=== PATIENT | female | born 1960 | race Caucasian/White ===

== ENCOUNTER 2017-05-29 10:51 | Inpatient (IN) | payer OTHER ==
[2017-05-29 11:10] VITALS: BMI 25.4
--- NOTE | 2017-05-29 12:47 | HP ---
CIWA Score - CIWA Score Nausea/Vomitin Muscle Tremors: 3 Anxiety: 3 Agitation: 3 Paroxysmal Sweats: 2 Orientation: 0-Oriented Tacttile Disturbances: 2-Mild Itch/Numbness/Burn Auditory Disturbances: 2-Mild Harshness/Frighten Visual Disturbances: 2-Mild Sensitivity Headache: 2-Mild CIWA-Ar Total Score: 22 Admission ROS BHS - HPI Chief Complaint: I NEED HELP TO STOP USING XANAX AND COCAINE Allergies/Adverse Reactions: Allergies Allergy/AdvReac Type Severity Reaction Status Date / Time No Known Allergies Allergy Verified 05/29/17 12:38 History of Present Illness: THIS 56 YEARS OLD FEMALE WITH XANAX AND COCAINE DEPENDENCE,SEEKING DETOX, WITHDRAWAL SYMPTOM,LAST DETOX 2007 UNKNOWN FACILITY TYPE 2 DM,ASTHMA,SCHIZOPHRENIA NICOTINE DEPENDENCE ON METHADONE MAINTENANCE LAST MEDICATED TODAY NO SIGNIFICANT PERIOD OF SOBRIETY Exam Limitations: No Limitations - Ebola screening Have you traveled outside of the country in the last 21 days: No Have you been sick,other than usual withdrawal symptoms: No - Review of Systems Constitutional: Chills, Loss of Appetite, Malaise, Night Sweats, Changes in sleep, Weakness EENT: reports: Tearing, Nose Congestion Respiratory: reports: No Symptoms reported, Other (HISTORY OF ASTHMA) Cardiac: reports: No Symptoms Reported GI: reports: Diarrhea, Nausea, Vomiting, Abdominal cramping : reports: No Symptoms Reported Musculoskeletal: reports: Back Pain, Muscle Pain Integumentary: reports: Dryness Neuro: reports: Headache, Tremors Endocrine: reports: No Symptoms Reported Hematology: reports: No Symptoms Reported Psychiatric: reports: No Sypmtoms Reported, Judgement Intact, Mood/Affect Appropiate, Orientated x3 Other Systems: Reviewed and Negative Patient History - Patient Medical History Hx Anemia: No Hx Asthma: Yes (ON ALBUTEROL AND SYMBICORT INHALER) Hx Chronic Obstructive Pulmonary Disease (COPD): No Hx Cancer: No Hx Cardiac Disorders: No Hx Congestive Heart Failure: No Hx Hypertension: No Hx Hypercholesterolemia: No Hx Pacemaker: No HX Cerebrovascular Accident: No Hx Seizures: Yes (LAST 5 YEARS AGO) Hx Dementia: No Hx Diabetes: Yes (ON METFORMIN 1000 MGS PO BID,LANTUS INSULIN 20 UNITS HS) Hx Gastrointestinal Disorders: No Hx Liver Disease: No Hx Genitourinary Disorders: No Hx Sexually Transmitted Disorders: No Hx Renal Disease (ESRD): No Hx Thyroid Disease: Yes (NOT SURE ,NO MED) Hx Human Immunodeficiency Virus (HIV): No Hx Hepatitis C: No Hx Depression: No Hx Suicide Attempt: No Hx Bipolar Disorder: No Hx Schizophrenia: Yes Other Medical History: NO SUICIDAL,NO HOMICIDAL - Patient Surgical History Hx Appendectomy: Yes (AT AGE OF 12 YEARS) - PPD History Previous Implant?: Yes Documented Results: Positive w/o proof Implanted On Prior [facility] Admission?: No PPD to be Administered?: No - Reproductive History Patient is a Female of Child Bearing Age (11 -55 yrs old): Yes Patient : No - Smoking Cessation Smoking history: Current every day smoker Have you smoked in the past 12 months: Yes Aproximately how many cigarettes per day: 20 Cigars Per Day: 0 Hx Chewing Tobacco Use: No Initiated information on smoking cessation: Yes 'Breaking Loose' booklet given: 05/29/17 - Substance & Tx. History Hx Alcohol Use: No Hx Substance Use: Yes Substance Use Type: Cocaine, Tranquilizers Hx Substance Use Treatment: Yes ([address] [place] [address]) - Substances Abused Alprazolam (Xanax) Route: Oral Frequency: Daily Amount used: 8mg Age of first use: 26 Date of Last Use: 05/25/17 Cocaine Route: Inhalation Frequency: Daily Amount used: 1 bag Age of first use: 26 Date of Last Use: 05/28/17 Family Disease History - Family Disease History Family History: Denies Admission Physical Exam BHS - Vital Signs Vital Signs: Vital Signs - 24 hr 05/29/17 11:08 Temperature 98.8 F Pulse Rate 81 Respiratory 18 Rate Blood Pressure 106/70 - Physical General Appearance: Yes: Moderate Distress, Tremorous, Irritable, Sweating, Anxious HEENTM: Yes: Normal ENT Inspection, CJ, Pharynx Normal Respiratory: Yes: Within Normal Limits, Lungs Clear, Normal Breath Sounds, No Respiratory Distress Neck: Yes: Within Normal Limits, Supple, Trachea in good position Breast: Yes: Breast Exam Deferred Cardiology: Yes: Within Normal Limits, Regular Rhythm, Regular Rate, S1, S2 Abdominal: Yes: Within Normal Limits, Normal Bowel Sounds, Non Tender, Flat, Soft, Surgical Scar (S/P APPENDECTOMY) Genitourinary: Yes: Within Normal Limits Back: Yes: Normal Inspection, Muscle Spasm Musculoskeletal: Yes: full range of Motion, Back pain, Muscle Pain Extremities: Yes: Normal Range of Motion, Tremors Neurological: Yes: payroll bookkeeper II-XII NML intact, Fully Oriented, Alert, Motor Strength 5/5 Integumentary: Yes: Dry Lymphatic: Yes: Within Normal Limits - Diagnostic (1) Uncomplicated sedative, hypnotic or anxiolytic withdrawal Current Visit: Yes Status: Acute (2) Cocaine dependence Current Visit: Yes Status: Acute (3) Withdrawal seizures Current Visit: Yes Status: Acute (4) DM2 (diabetes mellitus, type 2) Current Visit: Yes Status: Acute (5) Methadone maintenance therapy patient Current Visit: Yes Status: Acute (6) Schizophrenia Current Visit: Yes Status: Chronic Comment: As per self-report.On medications.Followed at the [facility] OPD clinic in [facility]. (7) History of appendectomy Current Visit: Yes Status: Acute (8) Nicotine dependence Current Visit: Yes Status: Acute Cleared for Admission BHS - Detox or Rehab S Level of Care: Medically Managed Detox Regimen/Protocol: Valium S Breath Alcohol Content Breath Alcohol Content: 0 Urine Pregancy Test - Result Urine Test Results: Negative- NO Line Present Urine Drug Screen - Results Drug Screen Negative: No Urine Drug Screen Results: YE-Cocaine, BZO-Benzodiazepines, MTD-Methadone
[2017-05-29] MEDS ORDERED: MAG HYDROX/AL HYDROX/SIMETH 30 ML UNIT-DOSE CUP PO PRN (13:03)
[2017-05-29] MEDS ORDERED: guaiFENesin/D-METHORPHAN HB 10 ML UNIT-DOSE CUPS PO PRN (13:03)
[2017-05-29] MEDS ORDERED: hydrOXYzine PAMOATE 50 MG CAPSULE (FP) PO PRN (13:03)
[2017-05-29] MEDS ORDERED: IBUPROFEN 400 MG TABLET (FP) PO PRN (13:03)
[2017-05-29] MEDS ORDERED: NICOTINE POLACRILEX 2 MG GUM BUC PRN (13:03)
[2017-05-29] MEDS ORDERED: MAGNESIUM CITRATE 300 ML BOTTLE PO PRN (13:03)
[2017-05-29] MEDS ORDERED: ACETAMINOPHEN 325 MG TABLET (FP) PO PRN (13:03)
[2017-05-29] MEDS ORDERED: P-EPHED 60MG/TRIPROLIDI 2.5MG TABLET PO PRN (13:03)
[2017-05-29] MEDS ORDERED: LOPERAMIDE HCL 2 MG CAPSULE PO PRN (13:03)
[2017-05-29] MEDS ORDERED: MAGNESIUM HYDROX 2400MG/30ML ORAL SUSPENSION 30 ML CUP PO PRN (13:03)
[2017-05-29] MEDS ORDERED: MENTHOL/PHENOL 1 EACH UD MM PRN (13:03)
[2017-05-29] MEDS ORDERED: diazePAM 5 MG TABLET PO PRN (13:03)
[2017-05-29] MEDS ORDERED: ALBUTEROL SO4 18 GM HFA INHALER IH PRN (13:10)
[2017-05-29] MEDS ORDERED: diazePAM 5 MG TABLET PO ONE (13:45)
[2017-05-29] MEDS: diazePAM 5 MG TABLET PO SCH ×2 (14:08→22:06)
[2017-05-29] MEDS: NICOTINE 21 MG/24 HOURS TOPICAL PATCH TD SCH (14:23)
--- NOTE | 2017-05-29 14:30 | CONSULT ---
[facility] Psychiatric Consult - Data Date of interview: 05/29/17 Admission source: [facility] Identifying data: First admission to [facility] for this female seeking detox treatment on for heroin and xanax dependence.Patient is dinglr without children,domiciled,unemployed and supported on SSI benefits. Substance Abuse History: Discussed in this session.Ms Sánchez confirmed patterns of substance abuse reported on admission at [facility].See details in the following report : Smoking history: Current every day smoker. Have you smoked in the past 12 months: Yes. Aproximately how many cigarettes per day: 20. Cigars Per Day: 0. Hx Chewing Tobacco Use: No. Initiated information on smoking cessation: Yes. 'Breaking Loose' booklet given: 05/29/17. - Substance & Tx. History. Hx Alcohol Use: No. Hx Substance Use: Yes. Substance Use Type : Cocaine, Tranquilizers. Hx Substance Use Treatment: Yes ([address] [place] [address] ) Medical History: Diabetes mellitus,bronchial asthma, antecedent of withdrawal- related seizures and a questionable history of thyroid disease.Noted report of a distant history of appendectomy. Psychiatric History: Diagnosed with Schizophrenia.Patient is a good and reliable historian.She presents with a history of multiple psychiatric hospitalizations since onset of mental illness in 1997 (auditory hallucinations, persecutory delusions and behavioral dyscontrol).Precipitant : of biological mother.Ms Sánchez is known to [facility] and other unnamed facilities.Prescribed risperdal 2 mg/day + remeron 45 mg/hs.Noted self-report of good adherence to her medications.Last taken just prior to this [facility] visit.She is currently on methadone maintenance (130 mg/day) at the [facility] in [facility] (counselor Nel Caraballo at [phone]) .Patient sees a psychiatrist at the [facility] OPD clinic for medication management.Denies history of suicide attempts. Physical/Sexual Abuse/Trauma History: Patient denies. Additional Comment: Urine Drug Screen Results: YE-Cocaine, BZO-Benzodiazepines , MTD-Methadone.Noted. Mental Status Exam - Mental Status Exam Alert and Oriented to: Time, Place, Person Cognitive Function: Good Patient Appearance: Well Groomed (small stature) Mood: Anxious, Hopeful Affect: Mood Congruent Patient Behavior: Fatigued, Appropriate (friendly and well-mannered), Cooperative Speech Pattern: Clear, Appropriate (fluent in bolivian) Voice Loudness: Normal Thought Process: Goal Oriented Thought Disorder: Not Present Hallucinations: Denies Suicidal Ideation: Denies Homicidal Ideation: Denies Insight/Judgement: Poor Sleep: Poorly, Difficulty falling asleep Appetite: Good Muscle strength/Tone: Normal Gait/Station: Normal Psychiatric Findings - Problem List ([place] 1, 2,3) (1) Schizophrenia Current Visit: Yes Status: Chronic Comment: As per self-report.On medications.Followed at the [facility] OPD clinic in [facility]. (2) Opioid dependence on agonist therapy Current Visit: Yes Status: Acute (3) Uncomplicated sedative, hypnotic or anxiolytic withdrawal Current Visit: Yes Status: Acute (4) Nicotine dependence Current Visit: Yes Status: Acute (5) Cocaine dependence Current Visit: Yes Status: Acute (6) Insomnia Current Visit: Yes Status: Acute - Initial Treatment Plan Initial Treatment Plan: Psychoeducation provided in this session.Orientation to unit.Sleep hygiene.Detoxification initiated.Patient is encouraged to attend groups,community meetings and recreational activities.Medications resumed as follows : risperdal 2 mg po daily + remeron 30 mg po hs (reduced as a caution against oversedation).Side effects/benefits are discussed with patient.Briefly informed of the risk of extrapyramidal syndrome,akathisia,dystonias,dyskinesias, galactorrhea,gynecomastia,sexual dysfunction,oversedation and cardiovascular adverse events.Ms Sánchez endorses her medications as always well tolerated and effective in the maintenance of wellness.Consent (verbal) given.Observation.
[2017-05-29] MEDS: metFORMIN HCL 500 MG TABLET (FP) PO SCH (17:30)
[2017-05-29] MEDS ORDERED: PATIENT'S OWN MEDICATION (NON-FORMULARY) (Metformin Hcl [Glucophage] 1,000 MG) PO SCH (22:00)
[2017-05-29] MEDS: MIRTAZAPINE 30 MG TABLET (FP) PO SCH (22:05)
[2017-05-29] MEDS: THIAMINE HCL 100 MG TABLET (FP) PO SCH (22:05)
[2017-05-29] MEDS: INSULIN DETEMIR 100 UNITS/ML MDV SQ SCH (22:50)
[2017-05-29] MEDS: BUDESONIDE/FORMETEROL FUMARATE 160/4.5 mcg INHALER IH SCH (22:55)
[2017-05-29 23:18] LABS: URINE APPEARANCE SLCLOUDY; URINE BILIRUBIN NEGATIVE (NEGATIVE); URINE BLOOD NEGATIVE (NEGATIVE); URINE COLOR DKYELLOW; URINE GLUCOSE (UA) 3+ (NEGATIVE); URINE KETONE TRACE (NEGATIVE); URINE NITRITE NEGATIVE (NEGATIVE); URINE PROTEIN NEGATIVE (NEGATIVE); URINE UROBILINOGEN 4.0 E.U/dl mg/dL (0.2-1.0)
[2017-05-29 23:20] LABS: URINE LEUK ESTERASE 3+ (NEGATIVE)
[2017-05-29 23:34] LABS: EPI CELLS FEW /HPF (FEW); URINE HYALINE CAST 5 /lpf; URINE MUCUS RARE
[2017-05-30] MEDS: diazePAM 5 MG TABLET PO SCH ×3 (05:49→22:09)
[2017-05-30] MEDS: metFORMIN HCL 500 MG TABLET (FP) PO SCH ×2 (08:00→17:30)
[2017-05-30] MEDS ORDERED: METHADONE HCL 40 MG DISPERSABLE TABLET PO SCH (08:45)
--- NOTE | 2017-05-30 09:01 | PN ---
S CIWA - CIWA Score Nausea/Vomitin Muscle Tremors: 3 Anxiety: 3 Agitation: 3 Paroxysmal Sweats: 1-Minimal Palms Moist Orientation: 0-Oriented Tacttile Disturbances: 1-Very Mild Itch/Numbness Auditory Disturbances: 1-Very Mild Visual Disturbances: 0-None Headache: 2-Mild CIWA-Ar Total Score: 17 BHS Progress Note (SOAP) Subjective: ALERT,IRRITABLE,ANXIOUS,INTERRUPTED SLEEP,TREMOR,PAIN IN THE BODY AND BACK Objective: 05/30/17 08:58 Vital Signs Temperature 97.7 F 05/30/17 06:00 Pulse Rate 55 L 05/30/17 06:00 Respiratory Rate 18 05/30/17 06:00 Blood Pressure 153/77 05/30/17 06:00 O2 Sat by Pulse Oximetry (%) EKG SINUS BRADYCARDIA 57/MIN PROLONG QT 466/453 NO CHEST PAIN,NO SOB,NO DIZZINESS Laboratory Last Values POC Glucometer 102 UNITS (80-120) 05/30/17 05:54 Urine Color Dkyellow 05/29/17 20:00 Urine Appearance Slcloudy 05/29/17 20:00 Urine pH 6.0 (5.0-8.0) 05/29/17 20:00 Ur Specific [place] 1.022 (1.001-1.035) 05/29/17 20:00 Urine Protein Negative (NEGATIVE) 05/29/17 20:00 Urine Glucose (UA) 3+ (NEGATIVE) H 05/29/17 20:00 Urine Ketones Trace (NEGATIVE) H 05/29/17 20:00 Urine Blood Negative (NEGATIVE) 05/29/17 20:00 Urine Nitrite Negative (NEGATIVE) 05/29/17 20:00 Urine Bilirubin Negative (NEGATIVE) 05/29/17 20:00 Urine Urobilinogen 4.0 e.u/dl mg/dL (0.2-1.0) H 05/29/17 20:00 Ur Leukocyte Esterase 3+ (NEGATIVE) H 05/29/17 20:00 Urine WBC (Auto) 21 /hpf (3-5) 05/29/17 20:00 Urine RBC (Auto) 2 /hpf (0-3) 05/29/17 20:00 Ur Epithelial Cells Few /HPF (FEW) 05/29/17 20:00 Hyaline Casts 5 /lpf 05/29/17 20:00 Urine Mucus Rare 05/29/17 20:00 LABS PENDING Assessment: 05/30/17 09:00 WITHDRAWAL SYMPTOM Plan: CONTINUE DETOX,REPEAT UA R/O UTI,ENCOURAGE ORAL FLUID
[2017-05-30] MEDS ORDERED: METHADONE HCL 40 MG DISPERSABLE TABLET ONE (09:36)
[2017-05-30] MEDS ORDERED: METHADONE HCL 10 MG TABLET ONE (09:37)
[2017-05-30] MEDS: METHADONE 120 MG, METHADONE 10 MG PO SCH (09:45)
[2017-05-30] MEDS: risperiDONE 2 MG TABLET PO SCH (09:46)
[2017-05-30] MEDS: NICOTINE 21 MG/24 HOURS TOPICAL PATCH TD SCH (09:46)
[2017-05-30] MEDS: PRENATAL VITAMINS W/ FOLIC ACID TABLET (FP) PO SCH (09:52)
[2017-05-30] MEDS: BUDESONIDE/FORMETEROL FUMARATE 160/4.5 mcg INHALER IH SCH ×2 (09:53→22:09)
[2017-05-30 10:05] LABS: HEMATOCRIT 44.5 % (32.4-45.2); HEMOGLOBIN 15.2 GM/dL (10.7-15.3); MCH 31.5 pg (25.7-33.7); MCHC 34.1 g/dl (32.0-36.0); MEAN CELL VOLUME 92.4 fl (80-96); MEAN PLT VOLUME 8.4 fl (7.5-11.1); PLATELET COUNT 216 K/MM3 (134-434); RBC 4.81 M/mm3 (3.60-5.2); RDW 14.5 % (11.6-15.6); WHITE BLOOD COUNT 6.6 K/mm3 (4.0-10.0)
[2017-05-30 11:03] LABS: ALBUMIN 3.3 g/dl (3.4-5.0); ANION GAP 8 (8-16); BILIRUBIN,TOTAL 0.3 mg/dL (0.2-1.0); BLOOD UREA NITROGEN 12 mg/dL (7-18); CALCIUM 9.3 mg/dL (8.5-10.1); CHLORIDE 100 mmol/L (98-107); CO2 31 mmol/L (21-32); CREATININE 0.6 mg/dL (0.55-1.02); GLUCOSE,RANDOM 93 mg/dL (74-106); POTASSIUM 3.9 mmol/L (3.5-5.1); SGOT/AST 19 U/L (15-37); SGPT/ALT 25 U/L (12-78); SODIUM 139 mmol/L (136-145); TOT PROT 7.1 g/dl (6.4-8.2)
[2017-05-30 11:04] LABS: ALK PHOS 97 U/L (45-117)
--- NOTE | 2017-05-30 11:44 | EKG ---
Test Reason : Blood Pressure : / mmHG Vent. Rate : 057 BPM Atrial Rate : 057 BPM P-R Int : 178 ms QRS Dur : 094 ms QT Int : 466 ms P-R-T Axes : 060 030 056 degrees QTc Int : 453 ms SINUS BRADYCARDIA POSSIBLE LEFT ATRIAL ENLARGEMENT BORDERLINE ECG NO PREVIOUS ECGS AVAILABLE Confirmed by ASHLEY DE LOS SANTOS, JENNY ([id number]) on 05/30/2017 11:44:27 AM Referred By: Confirmed By:JENNY RAMIREZ MD
[2017-05-30] MEDS: THIAMINE HCL 100 MG TABLET (FP) PO SCH (22:08)
[2017-05-30] MEDS: MIRTAZAPINE 30 MG TABLET (FP) PO SCH (22:08)
[2017-05-30] MEDS: INSULIN DETEMIR 100 UNITS/ML MDV SQ SCH (22:09)
[2017-05-31] MEDS ORDERED: METHADONE HCL 10 MG TABLET ONE (04:36)
[2017-05-31] MEDS ORDERED: METHADONE HCL 40 MG DISPERSABLE TABLET ONE (04:36)
[2017-05-31] MEDS: METHADONE 120 MG, METHADONE 10 MG PO SCH (05:44)
[2017-05-31] MEDS: metFORMIN HCL 500 MG TABLET (FP) PO SCH ×2 (06:45→17:21)
--- NOTE | 2017-05-31 10:05 | PN ---
S CIWA - CIWA Score Nausea/Vomitin Muscle Tremors: 3 Anxiety: 3 Agitation: 2 Paroxysmal Sweats: 1-Minimal Palms Moist Orientation: 0-Oriented Tacttile Disturbances: 1-Very Mild Itch/Numbness Auditory Disturbances: 1-Very Mild Visual Disturbances: 1-Very Mild Sensitivity Headache: 2-Mild CIWA-Ar Total Score: 17 BHS Progress Note (SOAP) Subjective: ALERT,IRRITABLE,ANXIOUS,INTERRUPTED SLEEP,TREMOR Objective: 05/31/17 10:02 Vital Signs Temperature 97.2 F L 05/31/17 09:48 Pulse Rate 66 05/31/17 09:48 Respiratory Rate 19 05/31/17 09:48 Blood Pressure 123/67 05/31/17 09:48 O2 Sat by Pulse Oximetry (%) Laboratory Last Values WBC 6.6 K/mm3 (4.0-10.0) 05/30/17 07:00 RBC 4.81 M/mm3 (3.60-5.2) 05/30/17 07:00 Hgb 15.2 GM/dL (10.7-15.3) 05/30/17 07:00 Hct 44.5 % (32.4-45.2) 05/30/17 07:00 MCV 92.4 fl (80-96) 05/30/17 07:00 MCH 31.5 pg (25.7-33.7) 05/30/17 07:00 MCHC 34.1 g/dl (32.0-36.0) 05/30/17 07:00 RDW 14.5 % (11.6-15.6) 05/30/17 07:00 Plt Count 216 K/MM3 (134-434) 05/30/17 07:00 MPV 8.4 fl (7.5-11.1) 05/30/17 07:00 Sodium 139 mmol/L (136-145) 05/30/17 07:00 Potassium 3.9 mmol/L (3.5-5.1) 05/30/17 07:00 Chloride 100 mmol/L (98-107) 05/30/17 07:00 Carbon Dioxide 31 mmol/L (21-32) 05/30/17 07:00 Anion Gap 8 (8-16) 05/30/17 07:00 BUN 12 mg/dL (7-18) 05/30/17 07:00 Creatinine 0.6 mg/dL (0.55-1.02) 05/30/17 07:00 Creat Clearance w eGFR > 60 (>60) 05/30/17 07:00 POC Glucometer 154 UNITS (80-120) 05/31/17 05:43 Random Glucose 93 mg/dL (74-106) 05/30/17 07:00 Calcium 9.3 mg/dL (8.5-10.1) 05/30/17 07:00 Total Bilirubin 0.3 mg/dL (0.2-1.0) 05/30/17 07:00 AST 19 U/L (15-37) 05/30/17 07:00 ALT 25 U/L (12-78) 05/30/17 07:00 Alkaline Phosphatase 97 U/L (45-117) 05/30/17 07:00 Total Protein 7.1 g/dl (6.4-8.2) 05/30/17 07:00 Albumin 3.3 g/dl (3.4-5.0) L 05/30/17 07:00 Urine Color Dkyellow 05/29/17 20:00 Urine Appearance Slcloudy 05/29/17 20:00 Urine pH 6.0 (5.0-8.0) 05/29/17 20:00 Ur Specific [place] 1.022 (1.001-1.035) 05/29/17 20:00 Urine Protein Negative (NEGATIVE) 05/29/17 20:00 Urine Glucose (UA) 3+ (NEGATIVE) H 05/29/17 20:00 Urine Ketones Trace (NEGATIVE) H 05/29/17 20:00 Urine Blood Negative (NEGATIVE) 05/29/17 20:00 Urine Nitrite Negative (NEGATIVE) 05/29/17 20:00 Urine Bilirubin Negative (NEGATIVE) 05/29/17 20:00 Urine Urobilinogen 4.0 e.u/dl mg/dL (0.2-1.0) H 05/29/17 20:00 Ur Leukocyte Esterase 3+ (NEGATIVE) H 05/29/17 20:00 Urine WBC (Auto) 21 /hpf (3-5) 05/29/17 20:00 Urine RBC (Auto) 2 /hpf (0-3) 05/29/17 20:00 Ur Epithelial Cells Few /HPF (FEW) 05/29/17 20:00 Hyaline Casts 5 /lpf 05/29/17 20:00 Urine Mucus Rare 05/29/17 20:00 RPR Titer Nonreactive (NONREACTIVE) 05/30/17 07:00 HIV 1&2 Antibody Screen Negative 05/29/17 07:00 HIV P24 Antigen Negative 05/29/17 07:00 Assessment: 05/31/17 10:04 WITHDRAWAL SYMPTOM Plan: CONTINUE DETOX,REPEAT UA R/O UTI
[2017-05-31] MEDS: diazePAM 5 MG TABLET PO SCH ×2 (10:09→22:18)
[2017-05-31] MEDS: PRENATAL VITAMINS W/ FOLIC ACID TABLET (FP) PO SCH (10:09)
[2017-05-31] MEDS: risperiDONE 2 MG TABLET PO SCH (10:09)
[2017-05-31] MEDS: BUDESONIDE/FORMETEROL FUMARATE 160/4.5 mcg INHALER IH SCH ×2 (10:10→22:18)
[2017-05-31] MEDS: NICOTINE 21 MG/24 HOURS TOPICAL PATCH TD SCH (10:11)
[2017-05-31] MEDS: INSULIN DETEMIR 100 UNITS/ML MDV SQ SCH (22:17)
[2017-05-31] MEDS: MIRTAZAPINE 30 MG TABLET (FP) PO SCH (22:18)
[2017-05-31] MEDS: THIAMINE HCL 100 MG TABLET (FP) PO SCH (22:18)
[2017-06-01] MEDS ORDERED: METHADONE HCL 40 MG DISPERSABLE TABLET ONE (04:50)
[2017-06-01] MEDS ORDERED: METHADONE HCL 10 MG TABLET ONE (04:50)
[2017-06-01] MEDS: METHADONE 120 MG, METHADONE 10 MG PO SCH (05:22)
[2017-06-01] MEDS: metFORMIN HCL 500 MG TABLET (FP) PO SCH ×2 (06:26→17:23)
--- NOTE | 2017-06-01 09:52 | PN ---
S Progress Note (SOAP) Subjective: alert,irritable,anxious,interrupted sleep, Objective: 06/01/17 09:51 Vital Signs Temperature 97.7 F 06/01/17 04:00 Pulse Rate 49 L 06/01/17 04:00 Respiratory Rate 18 06/01/17 04:00 Blood Pressure 149/72 06/01/17 04:00 O2 Sat by Pulse Oximetry (%) Assessment: 06/01/17 09:51 withdrawal symptom Plan: continue detox
[2017-06-01] MEDS: PRENATAL VITAMINS W/ FOLIC ACID TABLET (FP) PO SCH (10:02)
[2017-06-01] MEDS: NICOTINE 21 MG/24 HOURS TOPICAL PATCH TD SCH (10:02)
[2017-06-01] MEDS: BUDESONIDE/FORMETEROL FUMARATE 160/4.5 mcg INHALER IH SCH ×2 (10:03→22:15)
[2017-06-01] MEDS: risperiDONE 2 MG TABLET PO SCH (10:03)
[2017-06-01] MEDS: diazePAM 5 MG TABLET PO SCH ×2 (10:03→22:15)
[2017-06-01] MEDS: MIRTAZAPINE 30 MG TABLET (FP) PO SCH (22:15)
[2017-06-01] MEDS: THIAMINE HCL 100 MG TABLET (FP) PO SCH (22:15)
[2017-06-01] MEDS: INSULIN DETEMIR 100 UNITS/ML MDV SQ SCH (22:16)
[2017-06-02] MEDS ORDERED: METHADONE HCL 10 MG TABLET ONE (04:26)
[2017-06-02] MEDS ORDERED: METHADONE HCL 40 MG DISPERSABLE TABLET ONE (04:26)
[2017-06-02] MEDS: METHADONE 120 MG, METHADONE 10 MG PO SCH (05:27)
[2017-06-02] MEDS: metFORMIN HCL 500 MG TABLET (FP) PO SCH ×2 (08:00→17:29)
--- NOTE | 2017-06-02 09:35 | DS ---
[facility] Detox Discharge Summary Admission Date: 05/29/17 Discharge Date: 06/02/17 - History Present History: Sedative Dependence - Physical Exam Results Vital Signs: Vital Signs Temperature 97.7 F 06/02/17 07:36 Pulse Rate 55 L 06/02/17 07:36 Respiratory Rate 17 06/02/17 07:36 Blood Pressure 118/58 06/02/17 07:36 O2 Sat by Pulse Oximetry (%) Pertinent Admission Physical Exam Findings: withdrawal sx Laboratory Last Values WBC 6.6 K/mm3 (4.0-10.0) 05/30/17 07:00 RBC 4.81 M/mm3 (3.60-5.2) 05/30/17 07:00 Hgb 15.2 GM/dL (10.7-15.3) 05/30/17 07:00 Hct 44.5 % (32.4-45.2) 05/30/17 07:00 MCV 92.4 fl (80-96) 05/30/17 07:00 MCH 31.5 pg (25.7-33.7) 05/30/17 07:00 MCHC 34.1 g/dl (32.0-36.0) 05/30/17 07:00 RDW 14.5 % (11.6-15.6) 05/30/17 07:00 Plt Count 216 K/MM3 (134-434) 05/30/17 07:00 MPV 8.4 fl (7.5-11.1) 05/30/17 07:00 Sodium 139 mmol/L (136-145) 05/30/17 07:00 Potassium 3.9 mmol/L (3.5-5.1) 05/30/17 07:00 Chloride 100 mmol/L (98-107) 05/30/17 07:00 Carbon Dioxide 31 mmol/L (21-32) 05/30/17 07:00 Anion Gap 8 (8-16) 05/30/17 07:00 BUN 12 mg/dL (7-18) 05/30/17 07:00 Creatinine 0.6 mg/dL (0.55-1.02) 05/30/17 07:00 Creat Clearance w eGFR > 60 (>60) 05/30/17 07:00 POC Glucometer 147 UNITS (80-120) 06/02/17 05:30 Random Glucose 93 mg/dL (74-106) 05/30/17 07:00 Calcium 9.3 mg/dL (8.5-10.1) 05/30/17 07:00 Total Bilirubin 0.3 mg/dL (0.2-1.0) 05/30/17 07:00 AST 19 U/L (15-37) 05/30/17 07:00 ALT 25 U/L (12-78) 05/30/17 07:00 Alkaline Phosphatase 97 U/L (45-117) 05/30/17 07:00 Total Protein 7.1 g/dl (6.4-8.2) 05/30/17 07:00 Albumin 3.3 g/dl (3.4-5.0) L 05/30/17 07:00 Urine Color Dkyellow 05/29/17 20:00 Urine Appearance Slcloudy 05/29/17 20:00 Urine pH 6.0 (5.0-8.0) 05/29/17 20:00 Ur Specific [place] 1.022 (1.001-1.035) 05/29/17 20:00 Urine Protein Negative (NEGATIVE) 05/29/17 20:00 Urine Glucose (UA) 3+ (NEGATIVE) H 05/29/17 20:00 Urine Ketones Trace (NEGATIVE) H 05/29/17 20:00 Urine Blood Negative (NEGATIVE) 05/29/17 20:00 Urine Nitrite Negative (NEGATIVE) 05/29/17 20:00 Urine Bilirubin Negative (NEGATIVE) 05/29/17 20:00 Urine Urobilinogen 4.0 e.u/dl mg/dL (0.2-1.0) H 05/29/17 20:00 Ur Leukocyte Esterase 3+ (NEGATIVE) H 05/29/17 20:00 Urine WBC (Auto) 21 /hpf (3-5) 05/29/17 20:00 Urine RBC (Auto) 2 /hpf (0-3) 05/29/17 20:00 Ur Epithelial Cells Few /HPF (FEW) 05/29/17 20:00 Hyaline Casts 5 /lpf 05/29/17 20:00 Urine Mucus Rare 05/29/17 20:00 RPR Titer Nonreactive (NONREACTIVE) 05/30/17 07:00 HIV 1&2 Antibody Screen Negative 05/29/17 07:00 HIV P24 Antigen Negative 05/29/17 07:00 lab noted - Treatment Hospital Course: Detox Protocol Followed, Detoxed Safely, Responded well, Discharged Condition Good, Rehab Referral Accepted Patient has Accepted a Rehab Referral to: [facility] - Medication Discharge Medications: Ambulatory Orders Mirtazapine [Remeron -] 45 mg PO HS 05/29/17 Risperidone [Risperdal -] 2 mg PO DAILY 05/29/17 Albuterol Sulfate Inhaler - [Ventolin HFA Inhaler -] 2 inh PO Q4H PRN #1 inhaler 05/31/17 Budesonide/Formeterol Fumarate [SYMBICORT 160/4.5mcg -] 1 inh PO BID #1 inhaler 05/31/17 Insulin Glargine,Hum.rec.anlog [Lantus Solostar PEN -] 20 units SQ HS #1 ins 05/19 Metformin HCl [Glucophage] 1,000 mg PO BID #60 tablet 05/31/17 - Diagnosis (1) Asthma Current Visit: Yes Status: Chronic Qualifiers: Asthma severity: mild Asthma persistence: intermittent Asthma complication type: with status asthmaticus Qualified Code(s): J45.22 - Mild intermittent asthma with status asthmaticus (2) Uncomplicated sedative, hypnotic or anxiolytic withdrawal Current Visit: Yes Status: Acute (3) DM2 (diabetes mellitus, type 2) Current Visit: Yes Status: Chronic Qualifiers: Diabetes mellitus complication status: without complication Diabetes mellitus middle or intermediate school principal insulin use: without middle or intermediate school principal use Qualified Code(s): E11.9 - Type 2 diabetes mellitus without complications (4) Schizophrenia Current Visit: Yes Status: Suspected Qualifiers: Schizophrenia type: other Qualified Code(s): F20.89 - Other schizophrenia; F20.8 - Other schizophrenia - AMA Did Patient Leave Against Medical Advice: No
[2017-06-02] MEDS ORDERED: diazePAM 5 MG TABLET PO SCH (10:00)
[2017-06-02] MEDS: risperiDONE 2 MG TABLET PO SCH (10:09)
[2017-06-02] MEDS: PRENATAL VITAMINS W/ FOLIC ACID TABLET (FP) PO SCH (10:09)
[2017-06-02] MEDS: BUDESONIDE/FORMETEROL FUMARATE 160/4.5 mcg INHALER IH SCH ×2 (10:09→22:14)
[2017-06-02] MEDS: NICOTINE 21 MG/24 HOURS TOPICAL PATCH TD SCH (10:10)
[2017-06-02] MEDS: MIRTAZAPINE 30 MG TABLET (FP) PO SCH (22:13)
[2017-06-02] MEDS: THIAMINE HCL 100 MG TABLET (FP) PO SCH (22:13)
[2017-06-02] MEDS: INSULIN DETEMIR 100 UNITS/ML MDV SQ SCH (22:14)
[2017-06-03 01:10] LABS: URINE APPEARANCE SLCLOUDY; URINE BILIRUBIN NEGATIVE (NEGATIVE); URINE BLOOD NEGATIVE (NEGATIVE); URINE COLOR LTYELLOW; URINE GLUCOSE (UA) 3+ (NEGATIVE); URINE KETONE NEGATIVE (NEGATIVE); URINE NITRITE NEGATIVE (NEGATIVE); URINE PROTEIN NEGATIVE (NEGATIVE); URINE UROBILINOGEN NEGATIVE mg/dL (0.2-1.0)
[2017-06-03 01:13] LABS: URINE LEUK ESTERASE 1+ (NEGATIVE)
[2017-06-03 01:17] LABS: EPI CELLS RARE /HPF (FEW); URINE BACTERIA FEW /hpf (NONE SEEN); URINE MUCUS RARE
[2017-06-03] MEDS ORDERED: METHADONE HCL 40 MG DISPERSABLE TABLET ONE (04:22)
[2017-06-03] MEDS ORDERED: METHADONE HCL 10 MG TABLET ONE (04:23)
[2017-06-03] MEDS: METHADONE 120 MG, METHADONE 10 MG PO SCH (05:40)
[2017-06-03] MEDS: metFORMIN HCL 500 MG TABLET (FP) PO SCH (06:15)
--- NOTE | 2017-06-03 08:58 | DS ---
[facility] Detox Discharge Summary Admission Date: 05/29/17 Discharge Date: 06/03/17 - History Present History: Cocaine Dependence, Sedative Dependence, MMTP Additional Comments: FOLLOW UP WITH AFTER CARE PROGRAM ARRANGEMENT Pertinent Past History: WITHDRAWAL SEIZURE SCHIZOPHRENIA METHADONE MAINTENANCE THERAPY PATIENT NICOTINE DEPENDENCE HISTORY OF APPENDECTOMY - Physical Exam Results Vital Signs: Vital Signs Temperature 96.6 F L 06/03/17 06:00 Pulse Rate 59 L 06/03/17 06:00 Respiratory Rate 16 06/03/17 06:00 Blood Pressure 142/76 06/03/17 06:00 O2 Sat by Pulse Oximetry (%) Pertinent Admission Physical Exam Findings: WITHDRAWAL SYMPTOM AND FINDING Vital Signs Temperature 96.6 F L 06/03/17 06:00 Pulse Rate 59 L 06/03/17 06:00 Respiratory Rate 16 06/03/17 06:00 Blood Pressure 142/76 06/03/17 06:00 O2 Sat by Pulse Oximetry (%) - Treatment Hospital Course: Detox Protocol Followed, Detoxed Safely, Responded well, Discharged Condition Good, Rehab Referral Accepted Patient has Accepted a Rehab Referral to: [facility] - Medication Discharge Medications: Ambulatory Orders Mirtazapine [Remeron -] 45 mg PO HS 05/29/17 Risperidone [Risperdal -] 2 mg PO DAILY 05/29/17 Albuterol Sulfate Inhaler - [Ventolin HFA Inhaler -] 2 inh PO Q4H PRN #1 inhaler 05/31/17 Budesonide/Formeterol Fumarate [SYMBICORT 160/4.5mcg -] 1 inh PO BID #1 inhaler 05/31/17 Insulin Glargine,Hum.rec.anlog [Lantus Solostar PEN -] 20 units SQ HS #1 ins 05/19 Metformin HCl [Glucophage] 1,000 mg PO BID #60 tablet 05/31/17 - Diagnosis (1) Uncomplicated sedative, hypnotic or anxiolytic withdrawal Current Visit: Yes Status: Acute (2) Cocaine dependence Current Visit: Yes Status: Acute (3) Withdrawal seizures Current Visit: Yes Status: Acute (4) DM2 (diabetes mellitus, type 2) Current Visit: Yes Status: Chronic Qualifiers: Diabetes mellitus complication status: without complication Diabetes mellitus chcf insulin use: without chcf use Qualified Code(s): E11.9 - Type 2 diabetes mellitus without complications (5) Methadone maintenance therapy patient Current Visit: Yes Status: Acute (6) Schizophrenia Current Visit: Yes Status: Suspected Qualifiers: Schizophrenia type: other Qualified Code(s): F20.89 - Other schizophrenia; F20.8 - Other schizophrenia (7) History of appendectomy Current Visit: Yes Status: Acute (8) Nicotine dependence Current Visit: Yes Status: Acute - AMA Did Patient Leave Against Medical Advice: No
[2017-06-03] MEDS: PRENATAL VITAMINS W/ FOLIC ACID TABLET (FP) PO SCH (10:28)
[2017-06-03] MEDS: NICOTINE 21 MG/24 HOURS TOPICAL PATCH TD SCH (10:28)
[2017-06-03] MEDS: risperiDONE 2 MG TABLET PO SCH (10:28)
[2017-06-03] MEDS: BUDESONIDE/FORMETEROL FUMARATE 160/4.5 mcg INHALER IH SCH (10:29)
[2017-06-03 10:53] VITALS: BP 118/74; PULSE 79; TEMP 97.9
== END 2017-06-03 11:17 | disposition home or self-care (01) | DRG 773 ==
LOC: YASAS 10:51 → Y6N 13:06
PROVIDERS: ADMIT Internal Medicine; ATTEND Internal Medicine
PROC: HZ2ZZZZ Detoxification Services for Substance Abuse Treatment (ICD-10-PCS; principal; 2017-05-29)
DX: F13.230 Sedative, hypnotic or anxiolytic dependence with withdrawal, uncomplicated (principal); F11.20 Opioid dependence, uncomplicated; F14.20 Cocaine dependence, uncomplicated; F17.210 Nicotine dependence, cigarettes, uncomplicated; F20.89 Other schizophrenia; E11.9 Type 2 diabetes mellitus without complications; J45.22 Mild intermittent asthma with status asthmaticus; R00.1 Bradycardia, unspecified; G47.00 Insomnia, unspecified; Z79.4 Long term (current) use of insulin; Z79.84 Long term (current) use of oral hypoglycemic drugs; Z86.69 Personal history of other diseases of the nervous system and sense organs
CPT/HCPCS: 36415; 71045-TC-FY; 80053; 81003; 81015; 82962; 85027; 86593; 87389; 93005; 93010